=== PATIENT | male | born 1950 | race Hispanic/Latino ===

== ENCOUNTER 2019-01-12 09:07 | Day surgery (SDC) | payer OTHER ==
[2019-01-11 12:02] LABS: Absolute Lymphocytes (CBC) 1.5 K/uL (0.7-4.9); Absolute Monocytes 0.7 K/uL (0.1-1.3); Absolute Neutrophil 4.6 K/uL (1.8-8.0); Basophils % 0.8 % (0-1.3); Eosinophils % 0.6 % (0-4.4); Hematocrit 36.8 % (39.6-49.0); Lymphocytes % 22.5 % (15.3-44.8); MPV 12.4 fL (7.6-11.3); Monocytes % 9.5 % (3.3-12.3); RBC Red Blood Cell Count 4.18 M/uL (4.33-5.43)
[2019-01-11 13:03] LABS: Blood Morphology Comment NOT SEEN (NOT SEEN); Platelet Estimate DECR; Urine White Blood Cell Casts OK
[2019-01-12 09:30] LABS: Absolute Lymphocytes (CBC) 1.7 K/uL (0.7-4.9); Absolute Monocytes 0.5 K/uL (0.1-1.3); Absolute Neutrophil 3.7 K/uL (1.8-8.0); Basophils % 0.8 % (0-1.3); Eosinophils % 1.1 % (0-4.4); Hematocrit 38.5 % (39.6-49.0); Lymphocytes % 27.6 % (15.3-44.8); MPV 11.1 fL (7.6-11.3); Monocytes % 8.7 % (3.3-12.3); RBC Red Blood Cell Count 4.33 M/uL (4.33-5.43)
[2019-01-12] MEDS ORDERED: NA CHLORIDE 0.9% 1,000 ML ONE (09:31)
[2019-01-12] MEDS ORDERED: CEFAZOLIN/SWI 1gm 1 GM/10 ML SYR ONE (09:32)
--- NOTE | 2019-01-12 11:33 | EKG ---
Test Date: 2019-01-11 Test Time: 11:50:40 Hog Cutter: RICHI MEASUREMENT RESULTS: Intervals: Rate: 62 LA: 144 QRSD: 78 QT: 394 QTc: 399 [place]: P: 44 LA: 144 QRS: 16 T: 35 INTERPRETIVE STATEMENTS: Normal sinus rhythm Normal ECG Compared to ECG 12/03/2015 17:03:22 No significant changes Electronically Signed On 01-12-19 07:37:08 CDT by Thomas Kim
[2019-01-12] MEDS: BUPIVACA 0.5%/EPI 0.0005%/PF 10 ML VIAL ONE ×2 (12:09→12:18)
[2019-01-12] MEDS ORDERED: PROPOFOL 200 MG/20 ML VIAL IV ONE (12:23)
[2019-01-12] MEDS ORDERED: ROCURONIUM 50 MG/5 ML VIAL IV ONE (12:23)
[2019-01-12] MEDS ORDERED: FENTANYL CITR 250 MCG/5 ML ONE (12:23)
[2019-01-12] MEDS ORDERED: MIDAZOLAM HCL 2 MG/2 ML INJ ONE (12:23)
[2019-01-12] MEDS ORDERED: LIDOCAINE 2% MPF 5 ML VIAL ONE (12:23)
[2019-01-12] MEDS ORDERED: DEXAMETHASONE 10 MG/ML VIAL ONE (12:26)
[2019-01-12] MEDS ORDERED: EPHEDRINE SULF 50 MG/ML VIAL ONE (13:11)
[2019-01-12 13:40] VITALS: O2SAT 100
--- OUTSIDE RECORDS SUMMARY | 2019-01-12 13:52 | XMS REPORT ---
:1950 Author Organization eClinicalWorks Care Team Providers Name Role Phone Rojas, Na Provider Role Unavailable Allergies No Known Allergies Problems Problem Type Condition Code Onset Dates Condition Status Problem Dysarthria R47.1 Active Problem Benign prostatic hyperplasia N40.0 Active without lower urinary tract symptoms Problem PAD (peripheral artery disease) I73.9 Active Assessment Mixed hyperlipidemia E78.2 Active Problem Gastroesophageal reflux disease, K21.9 Active esophagitis presence not specified Problem Mixed hyperlipidemia E78.2 Active Problem Type 2 diabetes mellitus with E11.51 Active diabetic peripheral angiopathy without gangrene Problem Unspecified atherosclerosis of I70.209 Active [place] arteries of extremities, unspecified extremity Problem Thrombocytopenia D69.6 Active Problem Circulation problem I99.9 Active Problem Prediabetes R73.03 Active Problem Mucosal irritation of oral cavity R19.8 Active Problem Dysphagia, unspecified type R13.10 Active Medications Medication Code Code Instructions Start End Status Dosage System Date Date Pravastatin [facility] 26235576804 20 MG Orally Active 1 tablet Sodium Once a day Results No Known Results Summary Purpose eClinicalWorks Submission
--- OUTSIDE RECORDS SUMMARY | 2019-01-12 13:52 | XMS REPORT ---
:1950 Author Organization eClinicalWorks Care Team Providers Name Role Phone Rojas, Na Provider Role Unavailable Allergies No Known Allergies Problems Problem Type Condition Code Onset Dates Condition Status Problem Gastroesophageal reflux disease, K21.9 Active esophagitis presence not specified Problem Dysarthria R47.1 Active Problem Mixed hyperlipidemia E78.2 Active Assessment Prediabetes R73.03 Active Assessment Temporary low platelet count D69.6 Active Problem Dysphagia, unspecified type R13.10 Active Problem Mucosal irritation of oral cavity R19.8 Active Problem Temporary low platelet count D69.6 Active Problem Benign prostatic hyperplasia without N40.0 Active lower urinary tract symptoms Problem PAD (peripheral artery disease) I73.9 Active Problem Circulation problem I99.9 Active Problem Prediabetes R73.03 Active Medications Medication Code Code Instructions Start End Date Status Dosage System Date Metformin HCl [facility] 58081915022 1000 MG Orally Active 1 tablet twice a day with a meal Results No Known Results Summary Purpose eClinicalWorks Submission
--- OUTSIDE RECORDS SUMMARY | 2019-01-12 13:52 | XMS REPORT ---
:1950 [facility] Address [address] [place] [address] Care Team Providers Name Role Phone Unavailable Unavailable Unavailable Payers Payer Name Policy Type Policy Number Effective Date Expiration Date Problems This patient has no known problems. Allergies, Adverse Reactions, Alerts This patient has no known allergies or adverse reactions. Medications This patient has no known medications. Results Test Description Test Time Test Comments Text Results Atomic Results Result Comments CBC W/MANUAL DIFF 2018-11-14 12:33:00 Test Item Value Reference Range Comments WHITE BLOOD CELL (test code=WBC) 12.95 x10 3/uL 4.5-11.0 RED BLOOD CELL (test code=RBC) 4.93 x10 6/uL 4.00-5.60 HEMOGLOBIN (test code=HGB) 14.4 g/dL 12.5-16.9 HEMATOCRIT (test code=HCT) 40.9 % 37.5-50.7 MEAN CELL VOLUME (test code=MCV) 83.0 fL 81.0-99.0 MEAN CELL HGB (test code=MCH) 29.2 pg 27.0-33.0 MEAN CELL HGB CONCETRATION (test 35.2 g/dL 33.0-37.0 code=MCHC) RED CELL DISTRIBUTION WIDTH CV 13.4 % 11.5-14.5 (test code=RDW) RED CELL DISTRIBUTION WIDTH SD 40.1 fL 37.0-54.0 (test code=RDW-SD) PLATELET COUNT (test code=PLT) 65 x10 3/uL 150-400 IMMATURE PLATELET FRACTION (test 16.0 % 0.9-11.2 code=IPF) MEAN PLATELET VOLUME (test 13.9 fL 7.0-9.0 code=MPV) SEGMENTED NEUTROPHILS (test 79.4 % 37-69 code=SEG) LYMPHOCYTE (test code=LYMPH) 8.9 % 23-55 REACTIVE LYMPH (test code=RELYMPH) 1.8 % MONOCYTE (test code=MON) 4.5 % 0-10 EOSINOPHIL (test code=EOS) 2.7 % 0.0-4.0 BASOPHIL (test code=BASO) 0.9 % 0.0-2.0 METAMYELOCYTE (test code=META) 1.8 % 0.0-0.0 POIKILOCYTOSIS (test code=POIK) SLIGHT ANISOCYTOSIS (test code=ANISO) 1+ MICROCYTOSIS (test code=MICR) 1+ OVALOCYTES (test code=OVAL) FEW STOMATOCYTES (test code=STO) RARE HYPERSEGMENTED POLYS (test Present code=HYPP) PLATELET ESTIMATE (test 100-125 THOUSAND ADEQUATE code=PLTEST) PLATELET MORPHOLOGY (test LARGE PLATELETS LARGE PLTS AND GIANT code=PLTMORPH) PLTS SEEN CBC W/MANUAL [id number] 11:59:00 Test Item Value Reference Range Comments WHITE BLOOD CELL (test code=WBC) 12.95 x10 3/uL 4.5-11.0 RED BLOOD CELL (test code=RBC) 4.93 x10 6/uL 4.00-5.60 HEMOGLOBIN (test code=HGB) 14.4 g/dL 12.5-16.9 HEMATOCRIT (test code=HCT) 40.9 % 37.5-50.7 MEAN CELL VOLUME (test code=MCV) 83.0 fL 81.0-99.0 MEAN CELL HGB (test code=MCH) 29.2 pg 27.0-33.0 MEAN CELL HGB CONCETRATION (test code=MCHC) 35.2 g/dL 33.0-37.0 RED CELL DISTRIBUTION WIDTH CV (test 13.4 % 11.5-14.5 code=RDW) RED CELL DISTRIBUTION WIDTH SD (test 40.1 fL 37.0-54.0 code=RDW-SD) PLATELET COUNT (test code=PLT) 65 x10 3/uL 150-400 IMMATURE PLATELET FRACTION (test code=IPF) 16.0 % 0.9-11.2 MEAN PLATELET VOLUME (test code=MPV) 13.9 fL 7.0-9.0 ANISOCYTOSIS (test code=ANISO) PLATELET ESTIMATE (test code=PLTEST) THOUSAND ADEQUATE
--- OUTSIDE RECORDS SUMMARY | 2019-01-12 13:52 | XMS REPORT ---
:1950 Author Organization eClinicalWorks Care Team Providers Name Role Phone Rojas, Giselle Provider Role Unavailable Allergies, Adverse Reactions, Alerts Substance Reaction Event Type N.K.D.A. Info Not Available Non Drug Allergy Problems Problem Type Condition Code Onset Dates Condition Status Problem Gastroesophageal reflux disease, K21.9 Active esophagitis presence not specified Problem Dysarthria R47.1 Active Problem Mixed hyperlipidemia E78.2 Active Problem Dysphagia, unspecified type R13.10 Active Problem Mucosal irritation of oral cavity R19.8 Active Problem Temporary low platelet count D69.6 Active Problem Benign prostatic hyperplasia without N40.0 Active lower urinary tract symptoms Problem PAD (peripheral artery disease) I73.9 Active Problem Circulation problem I99.9 Active Problem Prediabetes R73.03 Active Assessment 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 Assessment Dysarthria R47.1 Active Assessment Gastroesophageal reflux disease, K21.9 Active esophagitis presence not specified Assessment Mixed hyperlipidemia E78.2 Active Assessment Benign prostatic hyperplasia without N40.0 Active lower urinary tract symptoms Assessment PAD (peripheral artery disease) I73.9 Active Assessment Prediabetes R73.03 Active Medications Medication Code Code Instructions Start End Status Dosage System Date Date Clopidogrel [facility] 23640052448 75 MG Orally Active 1 tablet Bisulfate Once a day Tamsulosin HCl [facility] 93751560272 0.4 MG Orally Active 1 capsule Once a day Cilostazol [facility] 04005724430 100 MG Orally Active 1 tablet 30 Twice a day minutes before or 2 hours after breakfast and dinner Pravastatin [facility] 55593499599 20 MG Orally Active 1 tablet Sodium Once a day Pantoprazole [facility] 34015699930 40 MG Orally Active 1 tablet Sodium Once a day Metformin HCl [facility] 28870799200 500 MG Orally Active 1 tablet twice a day with a meal Results Name Result Date Reference Range Unit Abnormality Flag CBC with Automated Diff ----Basophils % 0.4 60500905 0-1.3 % ----Eosinophils % 0.7 84467956 0-4.4 % ----Absolute Lymphocytes 1.3 56468678 0.7-4.9 (CBC) ----Absolute Neutrophil 5.3 46600643 1.8-8.0 ----Red Cell Distribution 14.2 52037824 12.1-15.2 % Width ----Absolute Eosinophils 0.0 88053510 0-0.5 ----Platelets 40 50830287 152-406 LL ----Absolute Monocytes 0.5 04634057 0.1-1.3 ----MCHC 35.1 13857645 32.0-36.0 g/dL ----MCH 29.1 19661643 27.0-35.0 pg ----MCV 83.1 22913053 80-100 fL ----Neutrophils % 73.8 72543629 41.7-73.7 % H ----MPV 12.1 75487455 7.6-11.3 fL H ----Monocytes % 7.0 62660065 3.3-12.3 % ----Lymphocytes % 18.1 10038429 15.3-44.8 % ----Absolute Basophils 0.0 99585786 0-0.5 ----White Blood Count 7.2 50832500 4.3-10.9 ----RBC Red Blood Cell Count 4.94 55250921 4.33-5.43 M/ul ----Hemoglobin 14.4 06174586 13.6-17.9 g/dL ----Hematocrit 41.0 78926134 39.6-49.0 % Comprehensive Metabolic Panel ----Creatinine 1.10 00476487 0.55-1.3 mg/dL ----BUN Blood Urea Nitrogen 14 20180510 7-18 mg/dL ----AST/SGOT 15 20180510 15-37 U/L ----Glomerular Filtration 66 20180510 =/>90 mL L Rate ----Alkaline Phosphatase 87 20180510 45-117 U/L ----Bilirubin Total 0.6 19532695 0.2-1.0 mg/dL ----ALT/SGPT 22 20180510 12-78 U/L ----Albumin 4.4 64646922 3.4-5.0 g/dL ----Bicarbonate 28 20180510 21-32 mmol/L ----Globulin 4.0 20180510 2.3-3.5 g/dL H ----Glucose Level 124 20180510 74-106 mg/dL H ----Potassium 4.1 20180510 3.5-5.1 mmol/L ----Calcium Level 9.5 20180510 8.5-10.1 mg/dL ----Protein, Total 8.4 20180510 6.4-8.2 g/dL H ----Chloride Level 106 20180510 98-107 mmol/L ----Sodium Level 140 20180510 136-145 mmol/L ----Albumin/Globulin Ratio 1.1 20180510 1.1-1.8 Summary Purpose eClinicalWorks Submission
--- OUTSIDE RECORDS SUMMARY | 2019-01-12 13:52 | XMS REPORT ---
:1950 Author Organization eClinicalWorks Care Team Providers Name Role Phone Rojas, Na Provider Role Unavailable Allergies, Adverse Reactions, Alerts Substance Reaction Event Type N.K.D.A. Info Not Available Non Drug Allergy Problems Problem Type Condition Code Onset Dates Condition Status Problem Dysarthria R47.1 Active Problem Benign prostatic hyperplasia N40.0 Active without lower urinary tract symptoms Problem PAD (peripheral artery disease) I73.9 Active Problem Type 2 diabetes mellitus with E11.51 Active diabetic peripheral angiopathy without gangrene Assessment Encounter for screening for HIV Z11.4 Active Problem Unspecified atherosclerosis of I70.209 Active [place] arteries of extremities, unspecified extremity Assessment Dysarthria R47.1 Active Assessment PAD (peripheral artery disease) I73.9 Active Problem Thrombocytopenia D69.6 Active Problem Circulation problem I99.9 Active Problem Prediabetes R73.03 Active Problem Mucosal irritation of oral cavity R19.8 Active Problem Dysphagia, unspecified type R13.10 Active Assessment Gastroesophageal reflux disease, K21.9 Active esophagitis presence not specified Assessment Thrombocytopenia D69.6 Active Assessment Need for hepatitis C screening test Z11.59 Active Assessment Need for hepatitis B screening test Z11.59 Active Assessment Unspecified atherosclerosis of I70.209 Active [place] arteries of extremities, unspecified extremity Assessment Mixed hyperlipidemia E78.2 Active Problem Gastroesophageal reflux disease, K21.9 Active esophagitis presence not specified Assessment 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 Assessment Type 2 diabetes mellitus with E11.51 Active diabetic peripheral angiopathy without gangrene Problem Mixed hyperlipidemia E78.2 Active Medications Medication Code Code Instructions Start End Status Dosage System Date Date Pantoprazole [facility] 32616982776 40 MG Orally Active 1 tablet Sodium Once a day Pantoprazole [facility] 18820546830 40 MG Orally Active 1 tablet Sodium Once a day Cilostazol ND 35805599559 100 MG Orally Inactive 1 tablet 30 Twice a day minutes before or 2 hours after breakfast and dinner Clopidogrel ND 76192122645 75 MG Orally Active 1 tablet Bisulfate Once a day Metformin HCl [facility] 27471864245 1000 MG Orally Active 1 tablet twice a day with a meal Pravastatin [facility] 76474063220 20 MG Orally Active 1 tablet Sodium Once a day Crestor [facility] 69176036722 10 MG Orally Jun 30, Active 1 tablet Once a day 2017 Tamsulosin HCl [facility] 29565703654 0.4 MG Orally Active 1 capsule Once a day Results Name Result Date Reference Range Unit Abnormality Flag PERIPHERAL BLOOD SMEAR FOR REVIEW JASON IFA Screen w/Reflex ----Anti-Nuclear Negative 20180630 Negative Antibody Screen ----JASON Pattern 2 Not indicated 20180630 CBC with Automated Diff ----Basophils % 0.4 17352537 0-1.3 % ----Eosinophils % 0.4 09770411 0-4.4 % ----Absolute 1.2 28117881 0.7-4.9 Lymphocytes (CBC) ----Absolute Neutrophil 5.4 46829148 1.8-8.0 ----Red Cell 13.9 23816082 12.1-15.2 % Distribution Width ----Absolute 0.0 57447716 0-0.5 Eosinophils ----Platelets 48 62893011 152-406 LL ----Absolute Monocytes 0.5 42436971 0.1-1.3 ----MCHC 35.6 05982663 32.0-36.0 g/dL ----MCH 29.7 75033774 27.0-35.0 pg ----MCV 83.5 20180630 80-100 fL ----Neutrophils % 75.7 08138119 41.7-73.7 % H ----MPV 12.6 04429003 7.6-11.3 fL H ----Monocytes % 6.8 43961165 3.3-12.3 % ----Lymphocytes % 16.7 61030909 15.3-44.8 % ----Absolute Basophils 0.0 75994776 0-0.5 ----Path Review YES 20180630 ----White Blood Count 7.1 84239084 4.3-10.9 ----RBC Red Blood Cell 5.05 24353570 4.33-5.43 M/ul Count ----Hemoglobin 15.0 20180630 13.6-17.9 g/dL ----Hematocrit 42.2 20180630 39.6-49.0 % Urine Microalbumin, Random ----UR MICROALBUMIN 1.8 20180630 < 1.9 mg/dL Hepatitis Panel,Acute ----HCV ADD PCR Not indicated 20180630 ----Hepatitis C Ab 0.26 20180630 <1.00 Signal/Cutoff ----Hepatitis C Nonreactive 20180630 Nonreactive Antibody ----Hepatitis A IgM Nonreactive 20180630 Antibody ----Hepatitis B Core Nonreactive 20180630 Nonreactive IgM Antibody ----Hepatitis B Surface REPORT 20180630 Ag Confirm ----HBsAG Nonreactive 20180630 Nonreactive Summary Purpose eClinicalWorks Submission
--- OUTSIDE RECORDS SUMMARY | 2019-01-12 13:52 | XMS REPORT ---
:1950 Author Organization eClinicalWorks Care Team Providers Name Role Phone Rojas, Giselle Provider Role Unavailable Allergies, Adverse Reactions, Alerts Substance Reaction Event Type N.K.D.A. Info Not Available Non Drug Allergy Problems Problem Type Condition Code Onset Dates Condition Status Problem Mixed hyperlipidemia E78.2 Active Problem Gastroesophageal reflux disease, K21.9 Active esophagitis presence not specified Problem Mucosal irritation of oral cavity R19.8 Active Problem Circulation problem I99.9 Active Problem Dysphagia, unspecified type R13.10 Active Problem PAD (peripheral artery disease) I73.9 Active Problem Dysarthria R47.1 Active Problem Prediabetes R73.03 Active Problem Benign prostatic hyperplasia N40.0 Active without lower urinary tract symptoms Assessment Benign prostatic hyperplasia N40.0 Active without lower urinary tract symptoms Assessment Prediabetes R73.03 Active Assessment Former cigar smoker Z87.891 Active Assessment Gastroesophageal reflux disease, K21.9 Active esophagitis presence not specified Assessment Dysarthria R47.1 Active Assessment Mixed hyperlipidemia E78.2 Active Assessment Dysphagia, unspecified type R13.10 Active Assessment PAD (peripheral artery disease) I73.9 Active Assessment Mucosal irritation of oral cavity R19.8 Active Medications Medication Code Code Instructions Start End Status Dosage System Date Date Tamsulosin HCl [facility] 01046829663 0.4 MG Orally Active 1 capsule Once a day Clopidogrel ND 04300329918 75 MG Orally Active 1 tablet Bisulfate Once a day Pantoprazole ND 90301678042 40 MG Orally Active 1 tablet Sodium Once a day Pravastatin ND 09281980065 20 MG Orally Active 1 tablet Sodium Once a day Cilostazol ND 10080531925 100 MG Orally Active 1 tablet 30 Twice a day minutes before or 2 hours after breakfast and dinner Metformin HCl ND 49926368007 500 MG Orally Active 1 tablet twice a day with a meal Results No Known Results Summary Purpose eClinicalWorks Submission
--- OUTSIDE RECORDS SUMMARY | 2019-01-12 13:52 | XMS REPORT | Continuity of Care Document ---
:1950 Author Organization Interface Problems Problem Status Onset Date Classification Date Comments Source Reported Medications Medication Details Route Status Patient Ordering Order Source Instructions Provider Date Allergies, Adverse Reactions, Alerts Substance Category Reaction Severity Reaction Status Date Comments Source type Reported Immunizations Immunization Date Given Site Status Last Updated Comments Source Results Order Results Value Reference Date Interpretation Comments Source Name Range Vital Signs Vital Sign Value Date Comments Source Encounters Location Location Encounter Encounter Reason Attending ADM DC Status Source Details Type Number For Provider Date Date Visit Outpatient [id number] [facility] 04/14 Active [facility] [facility] [id number] [facility] 05/10 [facility] [place] Outpatient [id number] [facility] 07/28 Active [facility] [place] Outpatient [id number] [facility] 10/27 [facility] [place] Outpatient [id number] [facility] 03/02 [facility] [place] Procedures Procedure Code Date Perfomer Comments Source
--- OUTSIDE RECORDS SUMMARY | 2019-01-12 13:53 | XMS REPORT ---
:1950 Author Organization eClinicalWorks Care Team Providers Name Role Phone Rojas, Na Provider Role Unavailable Allergies No Known Allergies Problems Problem Type Condition Code Onset Dates Condition Status Problem Dysarthria R47.1 Active Problem Benign prostatic hyperplasia N40.0 Active without lower urinary tract symptoms Problem PAD (peripheral artery disease) I73.9 Active Problem Gastroesophageal reflux disease, K21.9 Active esophagitis presence not specified Problem Mixed hyperlipidemia E78.2 Active Problem Type 2 diabetes mellitus with E11.51 Active diabetic peripheral angiopathy without gangrene Problem Unspecified atherosclerosis of I70.209 Active [place] arteries of extremities, unspecified extremity Problem Thrombocytopenia D69.6 Active Problem Circulation problem I99.9 Active Problem Prediabetes R73.03 Active Problem Mucosal irritation of oral cavity R19.8 Active Problem Dysphagia, unspecified type R13.10 Active Medications Medication Code Code Instructions Start End Status Dosage System Date Date Pantoprazole [facility] 47855728938 40 MG Orally Active 1 tablet Sodium Once a day Tamsulosin HCl [facility] 31761770472 0.4 MG Orally Active 1 capsule Once a day Pantoprazole [facility] 59087051267 40 MG Orally Active 1 tablet Sodium Once a day Clopidogrel ND 25340659530 75 MG Orally Active 1 tablet Bisulfate Once a day Pravastatin ND 67094375943 20 MG Orally Active 1 tablet Sodium Once a day Crestor ND 22259665779 10 MG Orally Nov 15, Active 1 tablet Once a day 2017 Finasteride ND 07089981144 5 MG Orally Active 1 tablet Once a day Metformin HCl ND 30979031183 1000 MG Orally Active 1 tablet twice a day with a meal Results No Known Results Summary Purpose eClinicalWorks Submission
--- OUTSIDE RECORDS SUMMARY | 2019-01-12 13:53 | XMS REPORT | Encounter Summary ---
:1950 Author Care Team Providers Name Role Phone Giselle Rojas DO Primary Care Provider [phone] Garfield Villarreal MD [facility] [phone] Reason for Visit Pre Op Instructions 1. Feeling of lump in throat 2. Dysphagia 3. Difficulty eating 4. Benign neoplasm of uvula 5. Difficulty speaking 6. Progressive pseudobulbar palsy 7. Intellectual disability, epilepsy, bulbous nose syndrome 8. Parkinson's disease 9. Deviated nasal septum 10. Hypertrophy of nasal turbinates Discussion Note: None recorded.Patient educational handouts: No information available. Plan of Care Patient Instructions Patient along with his mother discharged with the following instructions per Dr. Rey Patient is to take pre op orders to the hospital for blood work Surgery will be on 11/15/2018 primary excision of the uvula, microlaryngoscopy with biopsy, esophagoscopy with biopsy, and nasopharyngoscopy. Complications and risk were explained to the patients and mother If any other problem patient is to call the office Patient along with his mother verbalized understanding the instructions given along with my office staff Reminders Provider Appointments Surgery Surgery-MD [place] Schedule 11/15/2018 7:00AM Lab None recorded. Referral None recorded. Procedures None recorded. Surgeries None recorded. Imaging None recorded. Medications Name Start Date clopidogrel 75 mg tablet esomeprazole magnesium 20 mg capsule,delayed release finasteride 5 mg tablet metformin 1,000 mg tablet pantoprazole 40 mg tablet,delayed release prednisone 5 mg tablet rosuvastatin 10 mg tablet tamsulosin 0.4 mg capsule Xiidra 5 % eye drops in a dropperette Medications Administered None recorded. Vitals Height Weight BMI Blood Pressure 5 ft 2.5 in 139.4 lbs 25.1 kg/m2 145/75 mm[Hg] Lab Results None recorded. Allergies Code Code System Name Reaction Severity Status Onset 70900 RxNorm Plasma Protein Hives Moderate Active Fraction Problems No Known Problems Procedures None recorded. Vaccine List None recorded. Social History Smoking Status Former Smoker Past Encounters 11/09/2018 Feeling of Lump in Throat; Dysphagia; Difficulty Eating; Benign Neoplasm of Uvula; Difficulty Speaking; Progressive Pseudobulbar Palsy; Intellectual Disability, Epilepsy, Bulbous Nose Syndrome; Parkinso n's Disease; Deviated Nasal Septum; Hypertrophy of Nasal Turbinates Angelika Rey MD: [address], [address], [place] [address], Ph. 10/19/2018 Feeling of Lump in Throat; Dysphagia; Difficulty Eating; Benign Neoplasm of Uvula; Difficulty Speaking; Progressive Pseudobulbar Palsy; Intellectual Disability, Epilepsy, Bulbous Nose Syndrome; Parkinso n's Disease; Deviated Nasal Septum; Hypertrophy of Nasal Turbinates Angelika Rey MD: [address], [address], [place] [address], Ph. History of Present Illness None recorded. Review of Systems ENT ROS Reported By: Patient ENMT: ENMT: swelling, sore throat, hoarseness, runny nose Physical Exam ENT Exam [facility] [place]-No Stethoscope Reported By: Patient Constitutional: General Appearance: ill-appearing. Communication: hoarse Head/Face: Inspection: scarring. Facial strength: synkinesis; fascial twitching Oral Cavity/Mouth: Palate: elongated soft palate; elongated uvulathere is a bulbous trauma seen at the end of the uvula
--- OUTSIDE RECORDS SUMMARY | 2019-01-12 13:53 | XMS REPORT ---
[...] gangrene Problem Unspecified atherosclerosis of I70.209 Active [place] arteries of extremities, unspecified extremity Problem Thrombocytopenia D69.6 Active Problem Circulation problem I99.9 Active Problem Prediabetes R73.03 Active Problem Mucosal irritation of oral cavity R19.8 Active Problem Dysphagia, unspecified type R13.10 Active Medications No Known Medications Results No Known Results Summary Purpose eClinicalWorks Submission
--- OUTSIDE RECORDS SUMMARY | 2019-01-12 13:53 | XMS REPORT ---
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 Problem Unspecified atherosclerosis of I70.209 Active [place] arteries of extremities, unspecified extremity Problem Thrombocytopenia D69.6 Active Problem Circulation problem I99.9 Active Problem Prediabetes R73.03 Active Problem Mucosal irritation of oral cavity R19.8 Active Problem Dysphagia, unspecified type R13.10 Active Assessment Thrombocytopenia D69.6 Active Assessment PAD (peripheral artery disease) I73.9 Active Assessment Gastroesophageal reflux disease, K21.9 Active esophagitis presence not specified Assessment Dysarthria R47.1 Active Assessment Unspecified atherosclerosis of I70.209 Active [place] arteries of extremities, unspecified extremity Assessment Mixed hyperlipidemia E78.2 Active Problem Gastroesophageal reflux disease, K21.9 Active esophagitis presence not specified Assessment Type 2 diabetes mellitus with E11.51 Active diabetic peripheral angiopathy without gangrene Problem Mixed hyperlipidemia E78.2 Active Medications Medication Code Code Instructions Start End Status Dosage System Date Date Pravastatin ND 25159177001 20 MG Orally Active 1 tablet Sodium Once a day Pantoprazole [facility] 83638158761 40 MG Orally Active 1 tablet Sodium Once a day Crestor [facility] 35312089531 10 MG Orally Active 1 tablet Once a day Tamsulosin HCl ND 11105839531 0.4 MG Orally Active 1 capsule Once a day Metformin HCl ND 25153341132 1000 MG Orally Active 1 tablet twice a day with a meal Cilostazol [facility] 69441220815 100 MG Orally Inactive 1 tablet 30 Twice a day minutes before or 2 hours after breakfast and dinner Clopidogrel [facility] 32383829418 75 MG Orally Active 1 tablet Bisulfate Once a day Finasteride [facility] 92400008884 5 MG Orally Active 1 tablet Once a day Pantoprazole [facility] 51089167612 40 MG Orally Active 1 tablet Sodium Once a day Results No Known Results Summary Purpose eClinicalWorks Submission
--- OUTSIDE RECORDS SUMMARY | 2019-01-12 13:53 | XMS REPORT ---
:1950 Author Organization eClinicalWorks Care Team Providers Name Role Phone Rojas, Na Provider Role Unavailable Allergies No Known Allergies Problems Problem Type Condition Code Onset Dates Condition Status Problem Dysarthria R47.1 Active Problem Benign prostatic hyperplasia N40.0 Active without lower urinary tract symptoms Problem PAD (peripheral artery disease) I73.9 Active Assessment PAD (peripheral artery disease) I73.9 Active Problem Gastroesophageal reflux disease, K21.9 Active esophagitis presence not specified Problem Mixed hyperlipidemia E78.2 Active Problem Type 2 diabetes mellitus with E11.51 Active diabetic peripheral angiopathy without gangrene Problem Unspecified atherosclerosis of I70.209 Active [place] arteries of extremities, unspecified extremity Problem Thrombocytopenia D69.6 Active Problem Circulation problem I99.9 Active Problem Prediabetes R73.03 Active Problem Mucosal irritation of oral cavity R19.8 Active Problem Dysphagia, unspecified type R13.10 Active Medications Medication Code Code Instructions Start End Status Dosage System Date Date Clopidogrel [facility] 27707948519 75 MG Orally Active 1 tablet Bisulfate Once a day Results No Known Results Summary Purpose eClinicalWorks Submission
--- OUTSIDE RECORDS SUMMARY | 2019-01-12 13:53 | XMS REPORT ---
[...] gangrene Problem Unspecified atherosclerosis of I70.209 Active [place] arteries of extremities, unspecified extremity Problem Thrombocytopenia D69.6 Active Problem Circulation problem I99.9 Active Problem Prediabetes R73.03 Active Problem Mucosal irritation of oral cavity R19.8 Active Problem Dysphagia, unspecified type R13.10 Active Medications Medication Code System Code Instructions Start Date End Date Status Dosage [place] [facility] 44370152462 10 MG Orally Once Active 1 tablet a day Results No Known Results Summary Purpose eClinicalWorks Submission
--- OUTSIDE RECORDS SUMMARY | 2019-01-12 13:53 | XMS REPORT | Encounter Summary ---
:1950 Author Care Team Providers Name Role Phone Giselle Rojas DO Primary Care Provider [phone] Garfield Villarreal MD Post Closing Specialist [phone] Reason for Visit Follow Up Visit Instructions 1. Feeling of lump in throat 2. Dysphagia 3. Difficulty eating 4. Benign neoplasm of uvula 5. Difficulty speaking 6. Progressive pseudobulbar palsy 7. Intellectual disability, epilepsy, bulbous nose syndrome 8. Parkinson's disease 9. Deviated nasal septum 10. Hypertrophy of nasal turbinates Discussion Note: None recorded.Patient educational handouts: No information available. Plan of Care Patient Instructions Patient discharged with the following instructions per Dr. Rey Patient is needing Cardiac clearance Arrange primary excision of the uvula and microlaryngoscopy, esophagoscopy, and nasopharyngoscopy. Follow up in 2-3 weeks for pre op Complications and risk were expalined to the patient If any other problem patient is to call the office Patient verbalized understanding the instructions given along with my office nurse Reminders Provider Appointments PRE-OP 11/09/2018 Angelika Rey MD 11:00AM Lab None recorded. Referral None recorded. Procedures [...] BMI Blood Pressure 5 ft 2.5 in 142.7 lbs 25.7 kg/m2 158/77 mm[Hg] Lab Results None recorded. Allergies Code Code System Name Reaction Severity Status Onset 02468 RxNorm Plasma Protein Hives Moderate Active Fraction Problems No Known Problems Procedures None recorded. Vaccine List None recorded. Social History Smoking Status Former Smoker Past Encounters 10/19/2018 Feeling of Lump in Throat; Dysphagia; Difficulty Eating; Benign Neoplasm of Uvula; Difficulty Speaking; Progressive Pseudobulbar Palsy; Intellectual Disability, Epilepsy, Bulbous Nose Syndrome; Parkinso n's Disease; Deviated Nasal Septum; Hypertrophy of Nasal Turbinates Angelika Rey MD: [address] [place] [address], [address], [place] [address], Ph. History of Present Illness None recorded. Review of Systems ENT ROS Reported By: Patient ENMT: ENMT: swelling, sore throat, hoarseness, runny nose Physical Exam None recorded.
[2019-01-12 13:55] VITALS: TEMP 97.5
[2019-01-12 14:56] VITALS: BP 148/72
--- NOTE | 2019-01-13 07:01 | P.BOP ---
Preoperative diagnosis: suspicious neoplasm uvula Postoperative diagnosis: SCC uvula Primary procedure: excision tumor Secondary procedure: palatopharyngoplasty Elementary Education Teacher: NONE,NONE Estimated blood loss: <5ml Specimen: uvula, suture davis 12 oclock Findings: negative FS margins Anesthesia: General Complications: None Implants: none Fluids & blood products: see anesthesia record Transferred to: Recovery Room Condition: Good
--- NOTE | 2019-01-13 17:36 | OP ---
Date of Procedure: 01/12/2019 Surgeon: Lynne Jeffers MD Preoperative Diagnosis: Suspicious neoplasm of uvula. 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 Procedure: Excision of uvular tumor and palatopharyngoplasty for closure. Indication For Procedure: Mr. Nacho Fernandez presented to the ENT clinic with a chronic sore throat. He had undergone previous evaluation and discussion for biopsy with another ENT, but was found to have a low platelet count. He was later referred to a bond runner for evaluation including bone marrow b iopsy, which was unremarkable. His platelet count progressively decreased down to 22. He did receiv e some platelet transfusions as well as doses of IVIG. After discussion with his bond runner, the d ecision was made to proceed with the proposed procedure with preoperative evaluation of platelets and platelet transfusion if indicated. The day prior to the procedure, his platelet count was 95,000. On the morning of the procedure, his platelet count was 81,000, and no platelet transfusion was indic ated. The risks, benefits, and alternatives of the procedure were discussed with the patient and his family. They agreed to proceed. Description Of Procedure: The patient was brought to the operating room. He was placed under genera l anesthesia via oral endotracheal tube. His intubation was mildly difficult due to limited extensio n and firmness of the neck, but was accomplished using the fiberoptic assisted scope. After intubati on, the patient's head of bed was turned 90 degrees. No shoulder roll was required, but the neck was extended to the degree feasible. A McIvor mouth gag was used to retract the tongue and provide expo sure of the oropharynx. The tonsil, posterior pharyngeal wall, hard and soft palate appeared to be u nremarkable. There was approximately 1.5 cm area of exophytic tumor located on the distal end of the epiglottis. A needlepoint Bovie electrocautery was used to make a circumferential mucosal incision with approximately 5-8 mm of gross margin. After this mucosal cut, the muscle was divided and a lupillo ing suture was placed in the midline on the anterior aspect of the soft palate for orientation. The specimen was then sent to Pathology for frozen section and margins status. The defect was examined a nd included the uvula and a small portion of the muscular soft palate. Closure of the defect was per formed using interrupted chromic sutures in order to approximate the anterior and posterior aspects o f the palate. Estimated blood loss was very minimal. The frozen section confirmed squamous cell car cinoma with negative mucosal and deep margins. The palate was then injected with Marcaine with epine phrine to aid in postoperative pain control. The patient was then returned to care of Anesthesia for awakening and extubation in the operating room, which proceeded without difficulty, and the patient was transferred to the recovery room. He will be discharged home later today in the [facility]. Disposition: The patient will follow up with Dr. Jeffers in approximately 1 week for initial evaluat ion of healing and further discussion of treatment options. AIRAM/ARYAN Voice ID: [id number] Report ID: [id number]
== END 2019-01-12 15:01 | disposition home or self-care (01) ==
LOC: OR 09:07
PROVIDERS: ATTEND Otolaryngology
PROC: 0CBNXZZ Excision of Uvula, External Approach (ICD-10-PCS; principal; 2019-01-12 12:00)
DX: C05.2 Malignant neoplasm of uvula (principal); E11.9 Type 2 diabetes mellitus without complications; I10 Essential (primary) hypertension; K21.9 Gastro-esophageal reflux disease without esophagitis; N40.0 Benign prostatic hyperplasia without lower urinary tract symptoms; Z79.84 Long term (current) use of oral hypoglycemic drugs; Z79.899 Other long term (current) drug therapy; Z87.891 Personal history of nicotine dependence
CPT/HCPCS: 93005; 85025 ×2; 36415; 82962 ×2; 88331; 88332; 88305; 42145; J2704; J2250; J3010; J1100; J0690; J7030